=== PATIENT | male | born 1980 | race African-American/Black ===

== ENCOUNTER 2024-10-21 05:00 | Observation (INO) | payer OTHER ==
[2024-10-21] MEDS ORDERED: LORazepam 1 MG TAB PO PRN ×4 (05:08)
[2024-10-21] MEDS ORDERED: LORazepam 2 MG/ML INJ IV PRN ×3 (05:08)
--- NOTE | 2024-10-21 05:10 | ED ---
Alcohol HPI - General Stated Complaint: ETOH Time Seen by Provider: 10/21/24 05:01 Source: RN notes reviewed, old records reviewed Mode of arrival: ambulatory Limitations: no limitations - History of Present Illness Initial Comments: This is a 44-year-old male to the ER for evaluation of alcohol withdrawal symptoms. 2 days after last alcoholic drink and is having delirium and delusions Complaint: alcohol withdrawal -: days(s) (2) Previous Visits for Alcohol Intoxication?: Yes Recent Trauma: Yes Associated Symptoms: denies other symptoms Treatments Prior to Arrival: none Chronic Alcohol Use: Yes - Related Data Home Medications Medication Instructions Recorded Confirmed Acetaminophen Tab [Tylenol] 650 mg PO Q4H PRN 10/21/24 10/21/24 Calcium Phos/D3/Magnesium/Zinc 1 tab PO TID PRN 10/21/24 10/21/24 [Vcpckrp-Lih-Dtmt-Vitamin D3] Chlorpheniramine Maleate 4 mg PO Q4H PRN 10/21/24 10/21/24 [Chlor-Trimeton] LORazepam [Ativan] 1 - 2 mg PO Q4H PRN 10/21/24 10/21/24 Loperamide HCl [Imodium A-D] 4 mg PO QID PRN 10/21/24 10/21/24 Mag Hydrox/Aluminum Hyd/Simeth 30 ml PO Q4H PRN 10/21/24 10/21/24 [Mylanta Maximum Strength Liq] Melatonin 10 mg PO HS PRN 10/21/24 10/21/24 Mirtazapine [Remeron] 15 mg PO HS 10/21/24 10/21/24 Multivitamins, Thera [Multivitamin 1 tab PO DAILY 10/21/24 10/21/24 (formulary)] Thiamine [Vitamin B-1] 100 mg PO DAILY 10/21/24 10/21/24 cloNIDine HCL [Catapres] 0.1 - 0.3 mg PO Q4H PRN 10/21/24 10/21/24 ondansetron HCL [Zofran] 8 mg PO Q6H PRN 10/21/24 10/21/24 Previous Rx's Medication Instructions Recorded Famotidine [Pepcid] 20 mg PO BID #60 tab 10/21/24 Nicotine 21Mg/24Hr Patch [Habitrol] 1 patch TRANSDERM DAILY #30 patch 10/21/24 Allergies Allergy/AdvReac Type Severity Reaction Status Date / Time No Known Allergies Allergy Verified 10/21/24 09:10 Review of Systems ROS Statement: Those systems with pertinent positive or pertinent negative responses have been documented in the HPI. ROS Other: All systems not noted in ROS Statement are negative. General Exam General appearance: alert, in no apparent distress Head exam: Present: atraumatic, normocephalic, normal inspection Eye exam: Present: normal appearance, PERRL, EOMI. Absent: scleral icterus, co njunctival injection, periorbital swelling ENT exam: Present: normal exam, mucous membranes moist Neck exam: Present: normal inspection. Absent: tenderness, meningismus, lymphadenopathy Respiratory exam: Present: normal lung sounds bilaterally. Absent: respiratory distress, wheezes, rales, rhonchi, stridor Cardiovascular Exam: Present: regular rate, normal rhythm, normal heart sounds. Absent: systolic murmur, diastolic murmur, rubs, gallop, clicks GI/Abdominal exam: Present: soft, normal bowel sounds. Absent: distended, tenderness, guarding, rebound, rigid Extremities exam: Present: normal inspection, full ROM, normal capillary refill. Absent: tenderness, pedal edema, joint swelling, calf tenderness Back exam: Present: normal inspection Neurological exam: Present: alert, oriented X3, CN II-XII intact Psychiatric exam: Present: normal affect, normal mood Skin exam: Present: warm, dry, intact, normal color. Absent: rash Course Vital Signs 10/21/24 10/21/24 10/21/24 05:06 07:47 08:48 Temperature 98.6 F Pulse Rate 108 H 111 H 108 H Respiratory 18 18 16 Rate Blood Pressure 126/91 123/83 122/84 O2 Sat by Pulse 100 100 100 Oximetry 10/21/24 10/21/24 10/21/24 10:13 10:52 13:58 Temperature 98.1 F Pulse Rate 94 68 111 H Respiratory 14 16 18 Rate Blood Pressure 120/86 145/90 124/96 O2 Sat by Pulse 99 100 100 Oximetry - Reevaluation(s) Reevaluation #1: 10/21/24 05:36 Medical records reviewed Reevaluation #2: 10/21/24 06:05 Patient has no improvement in symptoms here in the ER Reevaluation #3: 10/21/24 06:05 Informed of results questions answered Reevaluation #4: Was pt. sent in by a medical professional or institution (DL Ghosh, TELEGRAPHIC SERVICE DISPATCHER, urgent care, hospital, or senior living...) When possible be specific @ -no Did you speak to anyone other than the patient for history (EMS, parent, family, police, friend...)? What history was obtained from this source @ -no Did you review nursing and triage notes (agree or disagree)? Why? @ -agree Are old charts reviewed (outside hosp., previous admission, EMS record, old EKG, old radiological studies, urgent care reports/EKG's, senior living records)? Report findings @ -yes Differential Diagnosis (chest pain, altered mental status, abdominal pain women, abdominal pain men, vaginal bleeding, weakness, fever, dyspnea, syncope, headache, dizziness, GI bleed, back pain, seizure, CVA, palpatations, mental health, musculoskeletal)? @ -prior EKG interpreted by me (3pts min.). @ -yes X-rays interpreted by me (1pt min.). @ -no CT interpreted by me (1pt min.). @ -no U/S interpreted by me (1pt. min.). @ -no What testing was considered but not performed or refused? (CT, X-rays, U/S, labs)? Why? @ -none What meds were considered but not given or refused? Why? @ -none Did you discuss the management of the patient with other professionals (professionals i.e. DL Ghosh, TELEGRAPHIC SERVICE DISPATCHER, lab, RT, psych nurse, social services director, interior wall assembler, teacher, third officer, insurance case manager)? Give summary @ -no Was smoking cessation discussed for >3mins.? @ -no Was critical care preformed (if so, how long)? @ -no Were there social determinants of health that impacted care today? How? (Homelessness, low income, unemployed, alcoholism, drug addiction, transportation, low edu. Level, literacy, decrease access to med. care, alf, rehab)? @ -none Was there de-escalation of care discussed even if they declined (Discuss DNR or withdrawal of care, Hospice)? DNR status @ -no What co-morbidities impacted this encounter? (DM, HTN, Smoking, COPD, CAD, Cancer, CVA, ARF, Chemo, Hep., AIDS, mental health diagnosis, sleep apnea, morbid obesity)? @ -none Was patient admitted / discharged? Hospital course, mention meds given and route, prescriptions, significant lab abnormalities, going to OR and other pertinent info. @ - 44 male to the ER for evaluation patient presents today for evaluation regards to significant alcohol withdrawal symptoms Admitted Undiagnosed new problem with uncertain prognosis? @ -no Drug Therapy requiring intensive monitoring for toxicity (Heparin, Nitro, Insulin, Cardizem)? @ -no Were any procedures done? @ -no Diagnosis/symptom? @ -Alcohol withdrawal symptoms Acute, or Chronic, or Acute on Chronic? @ -Acute Uncomplicated (without systemic symptoms) or Complicated (systemic symptoms)? @ -Complicated Side effects of treatment? @ -no Exacerbation, Progression, or Severe Exacerbation? @ -exacerbation Poses a threat to life or bodily function? How? (Chest pain, USA, VT, pneumonia, PE, COPD, DKA, ARF, appy, cholecystitis, CVA, Diverticulitis, Homicidal, Suicidal, threat to staff... and all critical care pts) @ -yes with alcohol withdrawal Reevaluation #5: Differential Altered Mental Status: Hypoglycemia, DKA, hypercapnia, ETOH, overdose, CO poisoning, trauma, myxedema coma, HTN encephalopathy, infection, encephalitis, psychosis, intercranial hemorrhage, hepatic encephalopathy, meningitis, CVA, this is not meant to be an all-inclusive list - Consultations Consultation #1: Spoke with the brayn Roman who agrees to admit this patient Medical Decision Making - Medical Decision Making 44 male to the ER for evaluation patient presents today for evaluation regards to significant alcohol withdrawal symptoms - Lab Data Result diagrams: 10/21/24 05:39 10/21/24 05:39 Lab Results 10/21/24 10/21/24 Range/Units 05:39 05:39 WBC 9.5 (3.8-10.6) k/uL RBC 4.20 L (4.30-5.90) m/uL Hgb 13.2 (13.0-17.5) gm/dL Hct 39.4 (39.0-53.0) % MCV 93.7 (80.0-100.0) fL MCH 31.5 (25.0-35.0) pg MCHC 33.6 (31.0-37.0) g/dL RDW 12.8 (11.5-15.5) % Plt Count 155 (150-450) k/uL MPV 8.0 Neutrophils % 86 % Lymphocytes % 7 % Monocytes % 4 % Eosinophils % 1 % Basophils % 0 % Neutrophils # 8.1 H (1.3-7.7) k/uL Lymphocytes # 0.7 L (1.0-4.8) k/uL Monocytes # 0.4 (0-1.0) k/uL Eosinophils # 0.1 (0-0.7) k/uL Basophils # 0.0 (0-0.2) k/uL Sodium 131 L (137-145) mmol/L Potassium 4.9 (3.5-5.1) mmol/L Chloride 91 L (98-107) mmol/L Carbon Dioxide 31 H (22-30) mmol/L Anion Gap 9 mmol/L BUN 6 L (9-20) mg/dL Creatinine 0.80 (0.66-1.25) mg/dL Est GFR (CKD-EPI)AfAm >90 (>60 ml/min/1.73 sqM) Est GFR (CKD-EPI)NonAf >90 (>60 ml/min/1.73 sqM) Glucose 125 H (74-99) mg/dL Calcium 10.5 H (8.4-10.2) mg/dL Phosphorus 2.9 (2.5-4.5) mg/dL Magnesium 1.4 L (1.6-2.3) mg/dL Total Bilirubin 1.0 (0.2-1.3) mg/dL AST 127 H (17-59) U/L ALT 45 (4-49) U/L Alkaline Phosphatase 62 (38-126) U/L Total Protein 8.4 H (6.3-8.2) g/dL Albumin 4.9 (3.5-5.0) g/dL Lipase 114 (23-300) U/L Serum Alcohol <10 mg/dL - EKG Data -: EKG Interpreted by Me (EKG is sinus tachycardia 108 WA 151 QRS 88 QTc 395) Disposition Clinical Impression: Alcohol withdrawal syndrome, Alcohol withdrawal delirium Disposition: HOME SELF-CARE Is patient prescribed a controlled substance at d/c from ED?: No Time of Disposition: 06:00
[2024-10-21] MEDS: LORazepam 2 MG/ML INJ IV STA (05:43)
[2024-10-21] MEDS: SODIUM CHLORIDE 0.9% 1,000 ML IV STA (05:46)
[2024-10-21 06:00] LABS: Basophils % (A) 0 %; Eosinophils # (A) 0.1 k/uL (0-0.7); Eosinophils % (A) 1 %; HCT 39.4 % (39.0-53.0); HGB 13.2 gm/dL (13.0-17.5); Lymphocytes # (A) 0.7 k/uL (1.0-4.8); Lymphocytes % (A) 7 %; MCH 31.5 pg (25.0-35.0); MCHC 33.6 g/dL (31.0-37.0); MCV 93.7 fL (80.0-100.0); Monocytes # (A) 0.4 k/uL (0-1.0); Monocytes % (A) 4 %; Neutrophils # (A) 8.1 k/uL (1.3-7.7); Neutrophils % (A) 86 %; Platelet Count 155 k/uL (150-450); RDW 12.8 % (11.5-15.5); WBC 9.5 k/uL (3.8-10.6)
[2024-10-21] MEDS ORDERED: KETOROLAC 15 MG/ML 1 ML VIAL IVP PRN (06:03)
[2024-10-21] MEDS ORDERED: NALOXONE 0.4 MG/ML 1 ML VIAL IV PRN (06:03)
[2024-10-21 06:17] LABS: ALT 45 U/L (4-49); AST 127 U/L (17-59); African American GFR (CKD) >90 (>60 ml/min/1.73 sqM); Albumin 4.9 g/dL (3.5-5.0); Alcohol <10 mg/dL; Alkaline Phosphatase 62 U/L (38-126); Anion Gap 9 mmol/L; Blood Urea Nitrogen 6 mg/dL (9-20); Calcium 10.5 mg/dL (8.4-10.2); Carbon Dioxide 31 mmol/L (22-30); Chloride 91 mmol/L (98-107); Glucose 125 mg/dL (74-99); Lipase 114 U/L (23-300); Magnesium 1.4 mg/dL (1.6-2.3); Non-African American GFR(CKD) >90 (>60 ml/min/1.73 sqM); Phosphorus 2.9 mg/dL (2.5-4.5); Potassium 4.9 mmol/L (3.5-5.1); Sodium 131 mmol/L (137-145); Total Protein 8.4 g/dL (6.3-8.2)
[2024-10-21] MEDS: SODIUM CHLORIDE 0.9% 1,000 ML IV SCH (07:41)
[2024-10-21] MEDS: IBUPROFEN 400 MG TAB PO PRN (07:52)
[2024-10-21] MEDS: LORazepam 0.5 MG TAB PO PRN (08:40)
[2024-10-21] MEDS: PANTOPRAZOLE 40 MG/10 ML VIAL IV SCH (08:41)
[2024-10-21] MEDS ORDERED: MELATONIN 5 MG TABLET PO PRN (10:54)
[2024-10-21] MEDS: ONDANSETRON 4 MG/2 ML VIAL IVP PRN (11:10)
[2024-10-21] MEDS: THIAMINE 100 MG TAB PO SCH (11:11)
[2024-10-21] MEDS ORDERED: CALCIUM CARBONATE 500 MG CHEWABLE PO PRN (11:50)
[2024-10-21] MEDS: FAMOTIDINE 20 MG TAB PO SCH (11:54)
[2024-10-21] MEDS: NICOTINE 21MG/24HR PATCH TRANSDERM SCH (12:16)
--- NOTE | 2024-10-21 12:33 | P.HPIM ---
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 Patient has been drinking 1/5 of vodka for quite some time has been drinking well for close to 30 years. For 2 days patient started having abdominal pain. With some nausea vomiting. Decided to come in. Last drink was on October 18. This morning patient started his breakfast. Feeling better. Abdominal pain is gone down. Also smokes a pack a cigarette a day. No fever no chills. Review of systems: GEN.: None EYES: None HEENT: None NECK: None RESPIRATORY: None CARDIOVASCULAR: None GASTROINTESTINAL: As above none GENITOURINARY: None MUSCULOSKELETAL: None LYMPHATICS: None HEMATOLOGICAL: None PSYCHIATRY denies depression or suicidal ideation NEUROLOGICAL: None Social history: Currently at [facility]. Otherwise lives with his mother. Not employed. Smokes a pack a day for close to 30 years. Drinking alcohol close to 30 years. About 1/5 of vodka currently. Last drink was on October 18. Physical examination: VITAL SIGNS: 98.6, 108, 18, 126 x 91, 100% room air upon presentation GENERAL: BMI 20.9, sitting in bed awake comfortable. EYES: Pupils equal. Conjunctiva juliana l. HEENT: External appearance of nose and ears normal, oral cavity grossly normal. NECK: JVD not raised; masses not palpable. HEART: First and second heart sounds are normal; no edema. LUNGS: Respiratory rate normal; clear to auscultation. ABDOMEN: Soft, nontender, liver spleen not palpable, no masses palpable. PSYCH: [Alert and oriented x3; mood and affect slightly anxious l. MUSCULOSKELETAL:No Clubbing/cyanosis;muscles-grossly intact NEUROLOGICAL: Cranial nerves grossly intact; no facial asymmetry, power and sensation grossly intact. LYMPHATICS: No lymph nodes palpable in the axilla and neck INVESTIGATIONS, reviewed in the clinical context: October 21, 2024: White count 9.5 globin 13.2 platelets 155 sodium 131 potassium 4.9 BUN 6 creatinine 0.8 AST 127 ALT 45 Lipase 114 Serum alcohol less than 10 Assessment plan: -Patient presents with 2 days of increasing upper abdominal pain. Some nausea vomiting. Now patient's pain is resolved when I see him. Likely acute gastritis from alcohol and smoking. Patient also tolerated his breakfast. Will see how patient does with lunch. Will add Pepcid. -Alcohol use disorder Thiamine. Patient had [facility]. Last drink was October 18 -Chronic nicotine dependence, cigarette smoker Nicotine patch Care was discussed with patient. Will give lunch. See how patient does. Counseled against smoking alcohol. Past Medical History History of Any Multi-Drug Resistant Organisms: None Reported Past Surgical History: No Surgical Hx Reported Smoking Status: Current every day smoker Past Alcohol Use History: Daily Past Drug Use History: Marijuana Medications and Allergies Home Medications Medication Instructions Recorded Confirmed Type Acetaminophen Tab [Tylenol] 650 mg PO Q4H PRN 10/21/24 10/21/24 History Calcium Phos/D3/Magnesium/Zinc 1 tab PO TID PRN 10/21/24 10/21/24 History [Sudvzan-Myt-Jeyj-Vitamin D3] Chlorpheniramine Maleate 4 mg PO Q4H PRN 10/21/24 10/21/24 History [Chlor-Trimeton] Ibuprofen [Motrin Ib] 600 mg PO Q6H PRN 10/21/24 10/21/24 History LORazepam [Ativan] 1 - 2 mg PO Q4H PRN 10/21/24 10/21/24 History Loperamide HCl [Imodium A-D] 4 mg PO QID PRN 10/21/24 10/21/24 History Mag Hydrox/Aluminum Hyd/Simeth 30 ml PO Q4H PRN 10/21/24 10/21/24 History [Mylanta Maximum Strength Liq] Melatonin 10 mg PO HS PRN 10/21/24 10/21/24 History Mirtazapine [Remeron] 15 mg PO HS 10/21/24 10/21/24 History Multivitamins, Thera [Multivitamin 1 tab PO DAILY 10/21/24 10/21/24 History (formulary)] Thiamine [Vitamin B-1] 100 mg PO DAILY 10/21/24 10/21/24 History cloNIDine HCL [Catapres] 0.1 - 0.3 mg PO Q4H PRN 10/21/24 10/21/24 History ondansetron HCL [Ondansetron HCl] 8 mg PO Q6H PRN 10/21/24 10/21/24 History Allergies Allergy/AdvReac Type Severity Reaction Status Date / Time No Known Allergies Allergy Verified 10/21/24 09:10 Physical Exam Vitals: Vital Signs Temp Pulse Resp BP Pulse Ox 10/21/24 10:52 68 16 145/90 100 10/21/24 10:13 94 14 120/86 99 10/21/24 08:48 108 H 16 122/84 100 10/21/24 07:47 111 H 18 123/83 100 10/21/24 05:06 98.6 F 108 H 18 126/91 100 Intake and Output 10/20/24 10/21/24 10/21/24 22:59 06:59 14:59 Other: Weight 68.039 kg Results CBC & Chem 7: 10/21/24 05:39 10/21/24 05:39 Labs: Abnormal Lab Results - Last 24 Hours (Table) 10/21/24 10/21/24 Range/Units 05:39 05:39 RBC 4.20 L (4.30-5.90) m/uL Neutrophils # 8.1 H (1.3-7.7) k/uL Lymphocytes # 0.7 L (1.0-4.8) k/uL Sodium 131 L (137-145) mmol/L Chloride 91 L (98-107) mmol/L Carbon Dioxide 31 H (22-30) mmol/L BUN 6 L (9-20) mg/dL Glucose 125 H (74-99) mg/dL Calcium 10.5 H (8.4-10.2) mg/dL Magnesium 1.4 L (1.6-2.3) mg/dL AST 127 H (17-59) U/L Total Protein 8.4 H (6.3-8.2) g/dL
[2024-10-21 13:59] VITALS: BP 124/96; PULSE 111; RESP 18; TEMP 98.1
--- NOTE | 2024-10-21 19:36 | P.DS ---
Providers Date of admission: 10/21/24 06:04 Expected date of discharge: 10/21/24 Attending physician: Edgar Ruano Primary care physician: Physician Nonstaff Hospital Course: Chief Complaint: Abdominal pain I am rounding for Dr. Edgar Ruano, was not feeling well This is a 44-year-old patient who presented here from [facility]. Patient has been drinking 1/5 of vodka for quite some time has been drinking well for close to 30 years. For 2 days patient started having abdominal pain. With some nausea vomiting. Decided to come in. Last drink was on October 18. This morning patient started his breakfast. Feeling better. Abdominal pain is gone down. Also smokes a pack a cigarette a day. No fever no chills. October 21: Kept his lunch down well. No further GI symptoms. Will be discharg ed on Pepcid. Keen to go back to [facility]. Given nicotine patch. Also stop Motrin. Social history: Currently at [facility]. Otherwise lives with his mother. Not employed. Smokes a pack a day for close to 30 years. Drinking alcohol close to 30 years. About 1/5 of vodka currently. Last drink was on October 18. Physical examination: VITAL SIGNS: 98.6, 108, 18, 126 x 91, 100% room air upon presentation GENERAL: BMI 20.9, sitting in bed awake comfortable. EYES: Pupils equal. Conjunctiva juliana l. HEENT: External appearance of nose and ears normal, oral cavity grossly normal. NECK: JVD not raised; masses not palpable. HEART: First and second heart sounds are normal; no edema. LUNGS: Respiratory rate normal; clear to auscultation. ABDOMEN: Soft, nontender, liver spleen not palpable, no masses palpable. PSYCH: [Alert and oriented x3; mood and affect slightly anxious l. MUSCULOSKELETAL:No Clubbing/cyanosis;muscles-grossly intact NEUROLOGICAL: Cranial nerves grossly intact; no facial asymmetry, power and sensation grossly intact. LYMPHATICS: No lymph nodes palpable in the axilla and neck INVESTIGATIONS, reviewed in the clinical context: October 21, 2024: White count 9.5 globin 13.2 platelets 155 sodium 131 potassium 4.9 BUN 6 creatinine 0.8 AST 127 ALT 45 Lipase 114 Serum alcohol less than 10 Assessment plan: -Likely acute gastritis from chronic alcohol intake: Improved Pepcid 20 mg twice daily -Alcohol use disorder Thiamine. Patient had [facility]. Last drink was October 18 Return to [facility] -Chronic nicotine dependence, cigarette smoker Nicotine patch Disposition: [facility] Past Medical History History of Any Multi-Drug Resistant Organisms: None Reported Past Surgical History: No Surgical Hx Reported Smoking Status: Current every day smoker Past Alcohol Use History: Daily Past Drug Use History: Marijuana Plan - Discharge Summary New Discharge Prescriptions: New Famotidine [Pepcid] 20 mg PO BID #60 tab Nicotine 21Mg/24Hr Patch [Habitrol] 1 patch TRANSDERM DAILY #30 patch Continue Thiamine [Vitamin B-1] 100 mg PO DAILY Mirtazapine [Remeron] 15 mg PO HS Melatonin 10 mg PO HS PRN PRN Reason: Insomnia Loperamide HCl [Imodium A-D] 4 mg PO QID PRN PRN Reason: Loose Stool Chlorpheniramine Maleate [Chlor-Trimeton] 4 mg PO Q4H PRN PRN Reason: Allergy Symptoms Acetaminophen Tab [Tylenol] 650 mg PO Q4H PRN PRN Reason: Fever And/ Or Pain Multivitamins, Thera [Multivitamin (formulary)] 1 tab PO DAILY Mag Hydrox/Aluminum Hyd/Simeth [Mylanta Maximum Strength Liq] 30 ml PO Q4H PRN PRN Reason: Gi Upset cloNIDine HCL [Catapres] 0.1 - 0.3 mg PO Q4H PRN PRN Reason: BP >160/100 Calcium Phos/D3/Magnesium/Zinc [Fksdmge-Vnk-Pjof-Vitamin D3] 1 tab PO TID PRN PRN Reason: Supplement LORazepam [Ativan] 1 - 2 mg PO Q4H PRN PRN Reason: WITHDRAWAL ondansetron HCL [Zofran] 8 mg PO Q6H PRN PRN Reason: Nausea And Vomiting Discontinued Ibuprofen [Motrin Ib] 600 mg PO Q6H PRN PRN Reason: Pain Discharge Medication List Acetaminophen Tab [Tylenol] 650 mg PO Q4H PRN 10/21/24 [History] Calcium Phos/D3/Magnesium/Zinc [Pbpfshq-Wpa-Dqrq-Vitamin D3] 1 tab PO TID PRN 10/21/24 [History] Chlorpheniramine Maleate [Chlor-Trimeton] 4 mg PO Q4H PRN 10/21/24 [History] Famotidine [Pepcid] 20 mg PO BID #60 tab 10/21/24 [Rx] LORazepam [Ativan] 1 - 2 mg PO Q4H PRN 10/21/24 [History] Loperamide HCl [Imodium A-D] 4 mg PO QID PRN 10/21/24 [History] Mag Hydrox/Aluminum Hyd/Simeth [Mylanta Maximum Strength Liq] 30 ml PO Q4H PRN 10/21/24 [History] Melatonin 10 mg PO HS PRN 10/21/24 [History] Mirtazapine [Remeron] 15 mg PO HS 10/21/24 [History] Multivitamins, Thera [Multivitamin (formulary)] 1 tab PO DAILY 10/21/24 [History] Nicotine 21Mg/24Hr Patch [Habitrol] 1 patch TRANSDERM DAILY #30 patch 10/21/24 [Rx] Thiamine [Vitamin B-1] 100 mg PO DAILY 10/21/24 [History] cloNIDine HCL [Catapres] 0.1 - 0.3 mg PO Q4H PRN 10/21/24 [History] ondansetron HCL [Zofran] 8 mg PO Q6H PRN 10/21/24 [History] Follow up Appointment(s)/Referral(s): Edgar Ruano MD [STAFF PHYSICIAN] - 1 Week Discharge Disposition: HOME SELF-CARE
[2024-10-21] MEDS ORDERED: MIRTAZAPINE 15 MG TAB PO SCH (21:00)
[2024-10-22] MEDS ORDERED: MULTIVITAMINS, THERA 1 EACH TAB PO SCH (09:00)
== END 2024-10-21 14:00 | disposition home or self-care (01) ==
LOC: EC 05:00 → 6NMEDSUR 06:04
PROVIDERS: ADMIT Family Medicine; ATTEND Family Medicine
DX: R10.10 Upper abdominal pain, unspecified (principal); R11.2 Nausea with vomiting, unspecified; F10.231 Alcohol dependence with withdrawal delirium; F17.210 Nicotine dependence, cigarettes, uncomplicated; F22 Delusional disorders; Z79.899 Other long term (current) drug therapy
CPT/HCPCS: 36415; 80053; 80320; 83690; 83735; 84100; 85025; 93005; 96374; 96375; 99284